=== PATIENT | female | born 1955 | race Caucasian/White ===

== ENCOUNTER → 2018-01-26 | Outpatient (CLI) | payer OTHER | END | disposition home or self-care (01) | LOC: C.PAPS 10:34 | PROVIDERS: ATTEND Obstetrics & Gynecology | DX: Z01.411 Encounter for gynecological examination (general) (routine) with abnormal findings (principal); R87.610 Atypical squamous cells of undetermined significance on cytologic smear of cervix (ASC-US) ==

== ENCOUNTER 2019-03-03 07:34 | Inpatient (IN) ==
--- NOTE | 2019-02-22 10:36 | Anesthesiology Consultation ---
Date of Service February 22, 2019 Assessment & Plan (1) Encounter for pre-operative examination: Chart Review Chart Review: Acceptable Risk for Surgery and Patient NOT seen in Pre Admission Testing History Surgery Operation Date: 03/03/19 12:50 Proposed Procedures p Left Knee Arthroscopy with - Roberto Velez DO s Quadriceps Tendon Repair - Roberto Velez DO Height/Weight Height: 5 ft 4 in Weight: 131.542 kg Allergies Allergy/AdvReac Type Severity Reaction Status Date / Time No Known Allergies Allergy Verified 02/14/19 09:58 Medications Home Medications Medication Instructions Recorded Confirmed Last Taken Prilosec OTC 20 mg PO QAM 10/17/18 02/14/19 Unknown hydrochlorothiazide 25 mg PO QAM 10/17/18 02/14/19 Unknown acetaminophen [Tylenol Arthritis 1,300 mg PO Q12H PRN 02/14/19 02/14/19 Unknown Pain] Past Medical History Medical History Edema reason for hydrochlorothiazide GERD (gastroesophageal reflux disease) Sleep apnea cpap Past Family History Family History Mother Family history of diabetes mellitus Other No family history of adverse response to anesthesia Past Surgical History Surgical History History of bilateral breast reduction surgery History of bilateral tubal ligation History of cardiac cath 10/2018 @ [facility] - abn stress test - no stents/angioplasty History of cholecystectomy History of colonoscopy History of phacoemulsification of cataract of both eyes with intraocular lens implantation History of total hysterectomy with bilateral salpingo-oophorectomy (BSO) Nausea and vomiting after administration of anesthetic agent Social History Smoking Status: Never smoker Do You Dip or Chew Tobacco: No Hx Alcohol Use: Yes Alcohol type: beer and wine alcohol intake frequency: holidays/special occasions only Hx Substance Use: No substance use type: does not use Testing Electrocardiogram Date: 02/20/19 Findings: + NSR @ Chest X-Ray Date: 02/20/19 Findings: + NAD Cardiac Catheterization Date: 10/24/18 Conclusions: Normal pulmonary pressures Normal left ventricular filling pressures Normal cardiac output No evidence of obstructive coronary disease Other Testing Laboratory Tests 10/07/18 02/20/19 02/20/19 09:50 10:33 10:33 WBC 7.42 Hgb 15.3 Hct 42.9 Plt Count 241 PT 10.4 INR 1.0 APTT 25.2 Sodium 141 Potassium 3.9 Chloride 106 Carbon Dioxide 31 BUN 17 Creatinine 1.00 Glucose 117 H
--- NOTE | 2019-03-02 23:12 | History & Physical Report ---
Date of Service March 02, 2019 Assessment & Plan (1) Rupture of quadriceps muscle: Schedule left knee arthroscopy with chondroplasty of the patella and femur, open repair quadriceps tendon tear. All potential risks, benefits, complications, alternatives, and rehab have been discussed with the patient and she wishes to proceed. She will be scheduled for 03.03.19. (2) Chondromalacia of left patella: History of Present Illness Chief Complaint: left knee pain Primary Care Provider: Hannah Sanchez DO This is a patient who sustained an injury to the left knee and was treated as a knee sprain. She participated in PT and used a knee brace but failed to make improvements. 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 She is being set up for surgical tx. Allergies Allergy/AdvReac Type Severity Reaction Status Date / Time No Known Allergies Allergy Verified 02/14/19 09:58 Home Medications Home Medications Medication Instructions Recorded Confirmed Type Prilosec OTC 20 mg PO QAM 10/17/18 02/14/19 History hydrochlorothiazide 25 mg PO QAM 10/17/18 02/14/19 History acetaminophen [Tylenol Arthritis 1,300 mg PO Q12H PRN 02/14/19 02/14/19 History Pain] Past Med/Surg History Medical History Edema reason for hydrochlorothiazide GERD (gastroesophageal reflux disease) Sleep apnea cpap Surgical History History of bilateral breast reduction surgery History of bilateral tubal ligation History of cardiac cath 10/2018 @ [facility] - abn stress test - no stents/angioplasty History of cholecystectomy History of colonoscopy History of phacoemulsification of cataract of both eyes with intraocular lens implantation History of total hysterectomy with bilateral salpingo-oophorectomy (BSO) Nausea and vomiting after administration of anesthetic agent Family History Mother Family history of diabetes mellitus Other No family history of adverse response to anesthesia Social History Preferred Language: Polish Communication Ability: Effective Beliefs That Will Affect Care: None Current Living Situation: Alone Feels Safe at Home: Yes Smoking Status: Never smoker Second Hand Exposure: No Hx Alcohol Use: Yes Alcohol type: beer and wine Hx Substance Use: No Physical Exam Constitutional: well developed and well nourished; no acute distress ENMT: external ear and nose normal, oropharynx normal Neck: trachea midline, no thyromegaly Respiratory: normal respiratory effort, lungs clear to auscultation Cardiovascular: Rate/Rhythm: regular rate and regular rhythm Gastrointestinal (Abdomen): normal bowel sounds, soft, nontender, no hepatosplenomegaly Musculoskeletal: Knee: + effusion (left knee: mild), + limited ROM of knee (left knee secondary to pain) and + joint line tenderness (left knee: tender over the patella and quad tendon); no deformity, no skin erythema, no ecchymosis, no valgus laxity and no varus laxity Skin: no rashes, warm and dry Neurologic: normal touch/pain/proprioception Psychiatric: A+Ox3, euthymic affect Lymphatic: no cervical or axillary lymphadenopathy
[~2019-03-03 07:34] MED LIST: CEFAZOLIN 3000MG 65 ML IV SCH; LR 15ML/HR IV SCH
--- NOTE | 2019-03-03 07:50 | History & Physical Bridge Note ---
Date of Service March 03, 2019 History & Physical Bridge Note I have examined the patient, reviewed the History & Physical and in the interval since the performance of the History & Physical I have noted the following changes of clinical significance: no changes noted
[2019-03-03] MEDS ORDERED: BUPIVACAINE/EPINEPHRINE 0.25% 1:200,000 30 ML VIAL ONE (09:10)
[2019-03-03] MEDS ORDERED: DEXAMETHASONE SOD INJ 4 MG/ML VIAL ONE ×2 (09:10→10:29)
[2019-03-03] MEDS ORDERED: ATROPINE SULFATE 0.1 MG/ML 10ML SYR IV PRN (09:52)
[2019-03-03] MEDS ORDERED: ePHEDrine sulfate 50 MG/ML AMP IV PRN (09:52)
[2019-03-03] MEDS ORDERED: HYDROmorphone INJ 2 MG/ML SYR/VIAL IV PRN (09:52)
[2019-03-03] MEDS ORDERED: ONDANSETRON INJ 2 MG/ML 2 ML VIAL IV PRN ×2 (09:52→12:18)
[2019-03-03] MEDS ORDERED: PROMETHAZINE HCL 6.25 MG in SODIUM CHLORIDE 0.9% 50 ML IV PRN (09:52)
[2019-03-03] MEDS ORDERED: LIDOCAINE HCL 2% 2 ML VIAL/AMP(20MG/ML) INFIL ONE (10:29)
[2019-03-03] MEDS ORDERED: ONDANSETRON INJ 2 MG/ML 2 ML VIAL ONE (10:29)
[2019-03-03] MEDS ORDERED: PROPOFOL IV EMULSION 10 MG/ML 20 ML VIAL IV ONE (10:29)
[2019-03-03] MEDS ORDERED: fentaNYL citrate 100 MCG/2 ML VIAL ONE ×2 (10:30→11:57)
[2019-03-03] MEDS ORDERED: MIDAZOLAM HCL 1 MG/ML 2ML VIAL ONE (10:30)
[2019-03-03] MEDS ORDERED: BACITRACIN INJ 50,000 UNIT VIAL ONE (10:58)
[2019-03-03] MEDS ORDERED: EpINEphrine HCL INJ 1 MG/ML 1ML SYRINGE ONE ×2 (10:58→12:05)
[2019-03-03] MEDS ORDERED: BUPIVACAINE/EPINEPHRINE 0.5% MPF 1:200,000 30 ML VIAL ONE (11:43)
[2019-03-03] MEDS ORDERED: HYDROmorphone INJ 2 MG/ML SYR/VIAL ONE (12:11)
[2019-03-03] MEDS ORDERED: MAGNESIUM HYDROXIDE SUSP 30 ML UDC PO PRN (12:18)
[2019-03-03] MEDS ORDERED: METOCLOPRAMIDE HCL INJ 5 MG/ML 2 ML VIAL IV PRN (12:18)
[2019-03-03] MEDS ORDERED: NALOXONE HCL 0.4 MG/1 ML VIAL/CARP IV PRN (12:18)
[2019-03-03] MEDS ORDERED: BISACODYL 10 MG SUPP PR PRN (12:18)
[2019-03-03] MEDS ORDERED: NO NSAIDS SCH (12:30)
[2019-03-03] MEDS ORDERED: HydrALAZINE HCL 20 MG/ML VIAL ONE (12:32)
[2019-03-03] MEDS ORDERED: METOPROLOL TARTRATE 1 MG/ML VIAL IV ONE (12:32)
--- NOTE | 2019-03-03 14:03 | Fluoroscopy Report ---
FL knee LT 1 or 2V CLINICAL HISTORY: LT PATELLA ORIF COMPARISON STUDY: None FLUOROSCOPY TIME: 30 seconds NUMBER OF FLUOROSCOPIC IMAGES: 2 FINDINGS: AP and lateral projection of the knee was obtained. Study was performed for open reduction internal fixation of the patella. IMPRESSION: Image intensifier utilized for open reduction internal fixation of the patella The above report was generated using voice recognition software. It may contain grammatical, syntax or spelling errors. Electronically signed by: Callum Mc M.D. 03/03/2019 2:02 PM
--- NOTE | 2019-03-03 14:27 | Post Operative Brief Note ---
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, symptomatic medial synovial plica, synovitis, Chondromalacia of left patella grade 3 Procedure Operation Date: 03/03/19 10:00 Actual Procedures p Left Knee Arthroscopy with partial medial meniscectomy, partial lateral meniscectomy, Chondroplasty of Patella, chondroplasty medial femoral condyle, chondroplasty femoral trochlea, Resection of symptomatic medial Synovial Plica, synovectomy (Left) - Roberto Velez DO s Quadriceps Tendon Repair - Roberto Velez DO Surgeon Roberto Velez DO Business Objects Analyst Arnav Cisneros PA-C Estimated Blood Loss 5 Findings Consistent with Post-Op Diagnosis Specimens None Anesthesia Type General Regional Complications none Disposition Accompanied Patient To Recovery: Yes Disposition: Recovery Room
[2019-03-03] MEDS ORDERED: ROCURONIUM BROMIDE 10 MG/ML 5 ML VIAL ONE (14:35)
--- NOTE | 2019-03-03 15:33 | Anesthesiology Progress Note ---
Date of Service March 03, 2019 Anesthesia Post Procedure Vital Signs Vital Signs: Temp Pulse Pulse Pulse Resp BP BP 03/03/19 15:15 76 18 147/70 H 03/03/19 15:10 78 21 159/69 H 03/03/19 15:05 36.4 C L 86 15 166/71 H 03/03/19 14:55 81 15 159/72 H 03/03/19 14:45 76 22 145/75 H 03/03/19 14:35 84 22 157/70 H 03/03/19 14:29 36.7 C 82 16 168/77 H 03/03/19 11:02 68 16 136/77 03/03/19 08:06 36.7 C 73 20 155/82 H Pulse Ox 03/03/19 15:15 93 03/03/19 15:10 92 03/03/19 15:05 94 03/03/19 14:55 92 03/03/19 14:45 93 03/03/19 14:35 94 03/03/19 14:29 96 03/03/19 11:02 94 03/03/19 08:06 93 Pain Intensity Left Knee: Pain Intensity: 2 Transfer of Care Handoff Completed per policy Notes Mental Status: alert / awake / arousable Patient Amnestic to Procedure: Yes Nausea / Vomiting: adequately controlled Pain: adequately controlled Airway Patency, RR, SpO2: stable & adequate BP & HR: stable & adequate Hydration State: stable & adequate Anesthetic Complications: no major complications apparent Notes: block working well in pacu
--- NOTE | 2019-03-03 15:34 | Anesthesiology Progress Note ---
Date of Service March 03, 2019 Anesthesia Post Procedure Vital Signs Vital Signs: Temp Pulse Pulse Pulse Resp BP BP 03/03/19 15:15 76 18 147/70 H 03/03/19 15:10 78 21 159/69 H 03/03/19 15:05 36.4 C L 86 15 166/71 H 03/03/19 14:55 81 15 159/72 H 03/03/19 14:45 76 22 145/75 H 03/03/19 14:35 84 22 157/70 H 03/03/19 14:29 36.7 C 82 16 168/77 H 03/03/19 11:02 68 16 136/77 03/03/19 08:06 36.7 C 73 20 155/82 H Pulse Ox 03/03/19 15:15 93 03/03/19 15:10 92 03/03/19 15:05 94 03/03/19 14:55 92 03/03/19 14:45 93 03/03/19 14:35 94 03/03/19 14:29 96 03/03/19 11:02 94 03/03/19 08:06 93 Pain Intensity Left Knee: Pain Intensity: 2 Transfer of Care Handoff Completed per policy Notes Mental Status: alert / awake / arousable and participated in evaluation Patient Amnestic to Procedure: Yes Nausea / Vomiting: adequately controlled Pain: adequately controlled Airway Patency, RR, SpO2: stable & adequate BP & HR: stable & adequate Hydration State: stable & adequate Anesthetic Complications: no major complications apparent
[2019-03-03] MEDS: ACETAMINOPHEN 500 MG TAB PO SCH ×2 (16:14→18:47)
[2019-03-03] MEDS: SODIUM CHLORIDE 0.9% 1000ML 1,000 ML IV SCH (16:19)
[2019-03-03] MEDS: CEFAZOLIN 2000MG 2,000 MG/15 ML SYR IV SCH (18:47)
[2019-03-03] MEDS: ASPIRIN 81 MG ECTAB PO SCH (20:40)
[2019-03-03] MEDS: DOCUSATE SODIUM 100 MG CAP PO SCH (20:40)
[2019-03-03] MEDS: SENNA 8.6 MG TAB PO SCH (20:40)
--- NOTE | 2019-03-03 22:45 | Operative Report ---
DATE OF OPERATION: 03/03/2019 PREOPERATIVE DIAGNOSES: 1. Left quadriceps tendon tear. 2. Chondromalacia grade 3 of the patella. 3. Chondromalacia grade 3 of the femoral trochlea. 4. Chondromalacia grade 3 of the medial femoral condyle. POSTOPERATIVE DIAGNOSES: 1. Left quadriceps tendon tear. 2. Chondromalacia grade 3 of the patella. 3. Chondromalacia grade 3 of the trochlea. 4. Chondromalacia grade 3 of the medial femoral condyle. 5. Medial meniscus tear of the posterior horn and root. 6. Lateral meniscus tear of the posterior horn and body. 7. Synovitis of the knee. 8. Symptomatic medial synovial plica. PROCEDURE: 1. Left knee arthroscopy with partial medial meniscectomy. 2. Left knee scope with partial lateral meniscectomy. 3. Chondroplasty patella. 4. Chondroplasty of medial femoral condyle. 5. Chondroplasty of the trochlea. 6. Resection medial synovial plica. 7. Synovectomy. 8. Open quadriceps tendon repair. SURGEON: Roberto Velez DO DIRECTOR OF OPERATIONS HOME HEALTH: Arnav Cisneros PA-C. who was present for patient positioning, sterile prep and drape, management of retractors and instruments. He was present through the critical portions of the case including wound closure, application of sterile dressing and transport of the patient to Recovery. ANESTHESIA: General regional. SPECIMENS: None. DRAINS: None. COMPLICATIONS: None. BLOOD LOSS: 5 mL PERTINENT HISTORY: This is a 63-year-old woman who sustained a slight twisting injury to her left knee. She had thought it was merely a sprain and strain. She then had physical therapy and pain then somewhat subsided and then worsened suddenly. She had continued persistent pain in the knee, was seen in clinic and failed all conservative measures. Had an MRI which demonstrated quadriceps tendon tear just at the level of the superior patella with scarring and slight retraction as well as chondromalacia of the undersurface of the patella and the trochlea. The patient was scheduled for surgery as indicated. All potential risks, benefits, complications, alternatives, rehab, potential for incomplete relief of symptoms, DVT, PE, , persistent pain, swelling, scarring, weakness, neurovascular injury, wound complications, hardware failure, need for further surgery discussed with the patient. The patient decided to proceed with the procedure as indicated. PROCEDURE: The patient had a regional anesthetic delivered in the preop holding area, then taken to operative suite, placed supine on the Operating Room table. I reviewed the consent and identification of operative site, the patient was anesthetized, LMA was placed. Tourniquet was placed high on the left thigh over cast padding. Left lower extremity was then sterilely prepped and draped in the usual fashion, elevated and exsanguinated Esmarch bandage, tourniquet inflated to 350 mmHg. Next, 11 blade scalpel was used to make an incision inferior lateral aspect of the knee. A superior medial portal outflow site was made with 11 blade scalpel, incision, blunt trocar and sleeve camera and inflow was inserted in the inferolateral portal site. Outflow was inserted in the superior medial portal site. Sequential diagnostic arthroscopy demonstrated synovitis and chondromalacia grade 3 of the patella and the femoral trochlea. No significant loose bodies. There was noted to be a symptomatic medial synovial plica with hypertrophic medial border. The medial gutter was inspected, no loose bodies; however synovitis was noted. Next, the medial compartment was inspected and noted to be synovitis. An 18 gauge spinal needle was inserted for portal placement followed by 11 blade scalpel incision followed by placement of a blunt tipped probe. There was noted to be tear of the root and posterior horn of the medial meniscus. A 3.5 mm sucker shaver was introduced and a partial medial meniscectomy was performed. Also was noted to be grade 3 chondromalacia of the medial femoral condyle. Chondroplasty was performed with 3.5 mm sucker shaver in the medial femoral condyle. Synovectomy was also performed of the medial compartment and the medial gutter. Next, the ACL and PCL were inspected and probed was inserted and noted to be stable. Next, the lateral joint space inspected and noted to have a tear of the posterior horn and body of the lateral meniscus. Partial medial meniscectomy was performed with 3.5 mm sucker shaver. Next, there was also synovitis noted in this compartment. Synovectomy was performed with the sucker shaver. Lateral gutters inspected and there was noted to be no loose bodies and a synovectomy was performed with 3.5 mm sucker shaver. Subsequently, attention was then directed toward the suprapatellar pouch and a synovectomy was performed, the suprapatellar pouch as well as a chondroplasty performed of the patella and the trochlea. Next, the symptomatic medial synovial plica was also then resected with the sucker shaver. After all particulate debris was then flushed from the joint, the instruments removed from the joint. Portals were closed using interrupted 4-0 nylon sutures. Attention then directed toward the midline of the knee and then a 15 blade scalpel, incision was made in the midline anterior left knee proximal to the patella extending to the distal pole of the patella. The incision was deepened through subcutaneous tissue. Meticulous hemostasis was achieved with electrocautery. Full thickness skin flaps were developed. The obvious tear of the quadriceps tendon and retinaculum was identified. This was sharply debrided. There was noted to be hypertrophic scar throughout. After this debrided the superior pole of the patella was identified and then a rongeur was then used to decorticate the superior pole of the patella for improved tissue ingrowth. Next, the quadriceps tendon was then repaired using #5 FiberWire suture using a [place] locking loop technique with 2 separate sutures. Next, a tendon from the Arthrex ACL set was then used to drill a central canal hole to the center-center portion of the patella from superior to inferior in a live fluoroscopic assistance. This was then followed by placement of the central to the fibers of the FiberWire repair down the first tunnel. Under live fluoroscopic assistance 2 further tunnels were made both medial and then lateral to the central channel thus shuttling the remaining 2 suture limbs both medially and laterally. The appropriate limbs were mated and the leg was held in approximately 25-30 degrees of flexion and the sutures were then tied and cut reapproximating the quadriceps tendon into anatomic position. This confirmed on live fluoroscopic assistance. Next, the superior retinaculum and torn medial and lateral retinaculum were then closed using interrupted #5 FiberWire and #1 Vicryl. After watertight seal was re-achieved the joint capsule was then injected with 0.5% Marcaine and epinephrine, approximately 30 mL. Next, the wound was copiously irrigated with sterile normal saline until clear and then the dermis was closed using interrupted buried 2-0 Vicryl suture. The skin was closed with skin carline. A sterile compressive dressing and toes to groin Blake wrap was applied. The tourniquet was released. The patient was awakened and taken to recovery in stable condition. I attest to the content of the Intraoperative Record and any orders documented therein. Any exception s are noted below.
[2019-03-04] MEDS: SODIUM CHLORIDE 0.9% 1000ML 1,000 ML IV SCH (02:56)
[2019-03-04] MEDS: CEFAZOLIN 2000MG 2,000 MG/15 ML SYR IV SCH (03:50)
[2019-03-04] MEDS: OXYCODONE HCL IR 5 MG TAB (IMMEDIATE RELEASE) PO PRN ×4 (04:58→23:58)
[2019-03-04] MEDS: ACETAMINOPHEN 500 MG TAB PO SCH ×3 (04:59→21:07)
[2019-03-04 06:55] LABS: Hematocrit (blood only) 41.7 % (37-47); Hemoglobin 14.5 g/dL (12.0-16.0); Mean Corpuscular Hgb Conc 34.8 g/dL (32-36); Mean Corpuscular Volume 90.7 fL (80-100); Platelet Count 255 K/uL (130-400); RDW Coefficient of Variation 13.2 % (11.5-14.5); RDW Standard Deviation 43.5 fL (36.4-46.3); White Blood Count 15.07 K/uL (4.8-10.8)
[2019-03-04 07:15] LABS: BUN Creatinine Ratio 15.7 (10-20); Calcium 8.8 mg/dl (8.5-10.1); Creatinine Clr Calc Pharmacy 80.3 ml/min; Est GFR (African American) 70.7
[2019-03-04] MEDS: HYDROmorphone INJ 0.5 MG/0.5 ML SYR IV PRN ×2 (07:47→13:21)
[2019-03-04] MEDS: DOCUSATE SODIUM 100 MG CAP PO SCH ×2 (08:49→20:30)
[2019-03-04] MEDS: PANTOprazole 40 MG TAB PO SCH (08:49)
[2019-03-04] MEDS: hydroCHLOROthiazide 25 MG TAB PO SCH (08:50)
[2019-03-04] MEDS: ASPIRIN 81 MG ECTAB PO SCH ×2 (08:50→20:30)
[2019-03-04] MEDS: MULTIVITAMIN TAB PO SCH (08:50)
--- NOTE | 2019-03-04 08:56 | Orthopedic Progress Note ---
Date of Service March 04, 2019 Assessment & Plan (1) Rupture of quadriceps muscle: NWB with Knee immobilizer marketing services manager checking with rehab for a few days but will most likely not hear from insurance until wednesday. PT/OT SCD's DC planning: Home with HH vs rehab Subjective POD #1 left knee scope and open quad repair. She notes some pain today and has concerns about going home by herself because she has no one to help and has 7 stairs to get inside apt. No CP, SOB. Nausea/vomit. dizziness Physical Exam Physical Exam: Toes mobile, NVI. Calves soft, non tender. Dressing in place and knee immobilizer Results & Data Vital Signs (Past 12 Hours) Vital Signs Temp Pulse Resp BP Pulse Ox 03/04/19 07:51 36.6 C 98 H 20 155/75 H 92 03/04/19 04:35 36.7 C 92 H 18 154/69 H 94 03/03/19 23:10 36.7 C 95 H 18 141/74 H 91
--- NOTE | 2019-03-04 17:04 | Anesthesiology Progress Note ---
Date of Service March 04, 2019 Anesthesia Post Procedure Vital Signs Vital Signs: Temp Pulse Pulse Resp BP Pulse Ox 03/04/19 15:19 158/75 H 03/04/19 14:58 36.6 C 83 16 165/67 H 94 03/04/19 12:00 36.5 C 74 20 161/85 H 90 03/04/19 07:51 36.6 C 98 H 20 155/75 H 92 03/04/19 04:35 36.7 C 92 H 18 154/69 H 94 03/03/19 23:10 36.7 C 95 H 18 141/74 H 91 03/03/19 19:19 36.5 C 75 20 150/70 H 94 03/03/19 17:34 36.6 C 87 20 145/75 H 95 Pain Intensity Left Knee: Pain Intensity: 7 Transfer of Care Handoff Completed per policy Notes Mental Status: alert / awake / arousable and participated in evaluation Patient Amnestic to Procedure: Yes Nausea / Vomiting: adequately controlled Pain: adequately controlled Airway Patency, RR, SpO2: stable & adequate BP & HR: stable & adequate Hydration State: stable & adequate Anesthetic Complications: no major complications apparent and Pt Satisfied with anesthetic care
[2019-03-04] MEDS: SENNA 8.6 MG TAB PO SCH (20:30)
[2019-03-05] MEDS: ACETAMINOPHEN 500 MG TAB PO SCH ×3 (05:43→21:52)
[2019-03-05] MEDS: OXYCODONE HCL IR 5 MG TAB (IMMEDIATE RELEASE) PO PRN ×5 (05:43→23:57)
[2019-03-05] MEDS: hydroCHLOROthiazide 25 MG TAB PO SCH (09:02)
[2019-03-05] MEDS: PANTOprazole 40 MG TAB PO SCH (09:02)
[2019-03-05] MEDS: MULTIVITAMIN TAB PO SCH (09:02)
[2019-03-05] MEDS: DOCUSATE SODIUM 100 MG CAP PO SCH ×2 (09:02→20:49)
[2019-03-05] MEDS: ASPIRIN 81 MG ECTAB PO SCH ×2 (09:02→20:49)
--- NOTE | 2019-03-05 10:07 | Orthopedic Progress Note ---
Date of Service March 05, 2019 Assessment & Plan (1) Rupture of quadriceps muscle: NWB with Knee immobilizer career services officer checking with rehab for a few days but will most likely not hear from insurance until wednesday. PT/OT SCD's DC planning: Home with HH vs rehab, awaiting approval rehab Subjective POD #2 left knee scope and open quad repair. She notes some pain today. She was able to use the walker and that seems better. concerns about going home by herself because she has no one to help and has 7 stairs to get inside apt. No CP, SOB. Nausea/vomit. dizziness Physical Exam Physical Exam: Incision clean dry intact. NVI. toes mobile Results & Data Vital Signs (Past 12 Hours) Vital Signs Temp Pulse Resp BP Pulse Ox 03/05/19 08:36 36.7 C 82 18 145/80 H 92 03/04/19 23:10 36.6 C 86 18 139/67 92
--- NOTE | 2019-03-05 17:44 | Ultrasound Report ---
US venous doppler LE LT CLINICAL HISTORY: Left leg pain and swelling COMPARISON STUDY: No previous studies for comparison. FINDINGS: Real-time and color flow Doppler imaging were performed. Flow was seen within the femoral, popliteal and calf veins with no intraluminal thrombus demonstrated. The saphenous vein is patent. It should be noted that the patient was unable to tolerate compression at the level of the distal sup erficial femoral vein and popliteal vein due to recent surgery. These vessels appear patent on color flow observation. In addition a portion of the right anterior tibial vein could not be visualized du e to an overlying bandage. IMPRESSION: No evidence of left lower extremity DVT. Electronically signed by: Miguel Ángel Maldonado M.D. 03/05/2019 5:43 PM
[2019-03-05] MEDS: SENNA 8.6 MG TAB PO SCH (20:49)
[2019-03-05] MEDS: MICONAZOLE NITRATE POWDER 43 GM EXT SCH (20:50)
[2019-03-06] MEDS: ACETAMINOPHEN 500 MG TAB PO SCH ×3 (05:50→22:02)
[2019-03-06] MEDS: OXYCODONE HCL IR 5 MG TAB (IMMEDIATE RELEASE) PO PRN ×4 (05:52→19:45)
[2019-03-06] MEDS: MICONAZOLE NITRATE POWDER 43 GM EXT SCH ×2 (06:53→21:12)
--- NOTE | 2019-03-06 07:45 | Anesthesiology Progress Note ---
Date of Service March 06, 2019 Anesthesia Post Procedure Vital Signs Vital Signs: Temp Pulse Resp BP Pulse Ox 03/06/19 06:49 36.7 C 79 18 149/80 H 91 03/06/19 00:00 36.8 C 87 18 158/66 H 91 03/05/19 15:28 37.1 C 86 16 148/79 H 90 03/05/19 08:36 36.7 C 82 18 145/80 H 92 Pain Intensity Left Knee: Pain Intensity: 5 Notes Mental Status: alert / awake / arousable and participated in evaluation Patient Amnestic to Procedure: Yes Nausea / Vomiting: adequately controlled Pain: adequately controlled Airway Patency, RR, SpO2: stable & adequate BP & HR: stable & adequate Hydration State: stable & adequate Anesthetic Complications: no major complications apparent and Pt Satisfied with anesthetic care
[2019-03-06] MEDS: MULTIVITAMIN TAB PO SCH (08:26)
[2019-03-06] MEDS: PANTOprazole 40 MG TAB PO SCH (08:26)
[2019-03-06] MEDS: DOCUSATE SODIUM 100 MG CAP PO SCH ×2 (08:26→21:12)
[2019-03-06] MEDS: hydroCHLOROthiazide 25 MG TAB PO SCH (08:26)
[2019-03-06] MEDS: ASPIRIN 81 MG ECTAB PO SCH ×2 (08:26→21:12)
--- NOTE | 2019-03-06 15:27 | Orthopedic Progress Note ---
Date of Service March 06, 2019 Assessment & Plan (1) Rupture of quadriceps muscle: s/p repair quad and scope left knee with dr lis wood, immobilizer, awaiting rehab. Subjective Pt doing well, voinces no complaints Physical Exam Physical Exam: LLE nvi, immobiliaer in place Results & Data Vital Signs (Past 12 Hours) Vital Signs Temp Pulse Resp BP Pulse Ox 03/06/19 06:49 36.7 C 79 18 149/80 H 91
[2019-03-06] MEDS: SENNA 8.6 MG TAB PO SCH (21:12)
[2019-03-07] MEDS: OXYCODONE HCL IR 5 MG TAB (IMMEDIATE RELEASE) PO PRN ×3 (03:17→12:28)
[2019-03-07] MEDS: ACETAMINOPHEN 500 MG TAB PO SCH ×2 (05:53→12:28)
[2019-03-07 07:13] VITALS: BP 146/78; TEMP 98.2; O2SAT 94
--- NOTE | 2019-03-07 07:36 | Orthopedic Progress Note ---
Date of Service March 07, 2019 Assessment & Plan (1) Rupture of quadriceps muscle: POD #4 s/p 1. Left knee arthroscopy with partial medial meniscectomy. 2. Left knee scope with partial lateral meniscectomy. 3. Chondroplasty patella. 4. Chondroplasty of medial femoral condyle. 5. Chondroplasty of the trochlea. 6. Resection medial synovial plica. 7. Synovectomy. 8. Open quadriceps tendon repair. nwb LLE at all times, immobilizer D/C planning--awaiting approval and acceptance to [facility] rehab--hopeful for D/C today. DVT prophylaxis--TEDs and ASA Subjective No complaints. States the pain has been controlled. Working with staying NWB LLE. No chest pain, SOB. Physical Exam Constitutional: well developed and well nourished; no acute distress ENMT: external ear and nose normal, oropharynx normal Neck: trachea midline, no thyromegaly Respiratory: normal respiratory effort, lungs clear to auscultation Cardiovascular: Rate/Rhythm: regular rate and regular rhythm Gastrointestinal (Abdomen): normal bowel sounds, soft, nontender, no hepatosplenomegaly Musculoskeletal: Knee: + surgical incision (Left knee: [place] in place. ) and + joint line tenderness (left knee: tender over the patella and quad tendon); no deformity, no skin erythema, no ecchymosis, no valgus laxity and no varus laxity Skin: no rashes, warm and dry Neurologic: normal touch/pain/proprioception Psychiatric: A+Ox3, euthymic affect Lymphatic: no cervical or axillary lymphadenopathy Results & Data Vital Signs (Past 12 Hours) Vital Signs Temp Pulse Resp BP Pulse Ox 03/07/19 07:11 36.8 C 74 18 146/78 H 94 03/06/19 23:44 36.7 C 80 20 146/73 H 92
[2019-03-07] MEDS: PANTOprazole 40 MG TAB PO SCH (08:40)
[2019-03-07] MEDS: DOCUSATE SODIUM 100 MG CAP PO SCH (08:40)
[2019-03-07] MEDS: MULTIVITAMIN TAB PO SCH (08:40)
[2019-03-07] MEDS: ASPIRIN 81 MG ECTAB PO SCH (08:41)
[2019-03-07] MEDS: hydroCHLOROthiazide 25 MG TAB PO SCH (08:41)
[2019-03-07] MEDS: MICONAZOLE NITRATE POWDER 43 GM EXT SCH (08:42)
[2019-03-07 11:49] VITALS: PULSE 75
--- NOTE | 2019-03-10 09:54 | Discharge Summary ---
Date of Service March 10, 2019 Admission HPI Per Admitting Provider This is a patient who sustained an injury to the left knee and was treated as a knee sprain. She participated in PT and used a knee brace but failed to make improvements. 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 She is being set up for surgical tx. Principal Diagnosis left quadriceps tendon tear Discharge Exam Constitutional well developed and well nourished; no acute distress ENMT external ear and nose normal, oropharynx normal Neck trachea midline, no thyromegaly Respiratory normal respiratory effort, lungs clear to auscultation Cardiovascular Rate/Rhythm: regular rate and regular rhythm Gastrointestinal (Abdomen) normal bowel sounds, soft, nontender, no hepatosplenomegaly Musculoskeletal Knee: + surgical incision (Left knee: Silverlon in place. ) and + joint line te nderness (left knee: tender over the patella and quad tendon); no deformity, no skin erythema, no ecchymosis, no valgus laxity and no varus laxity Skin no rashes, warm and dry Neurologic normal touch/pain/proprioception Psychiatric A+Ox3, euthymic affect Lymphatic no cervical or axillary lymphadenopathy Discharge Data Allergies Allergy/AdvReac Type Severity Reaction Status Date / Time No Known Allergies Allergy Verified 03/03/19 08:00 Consultations 03/03/19 12:19 Consult Case Management - Discharge Planning Routine Procedures Performed Operation Date: 03/03/19 10:00 Actual Procedures p Left Knee Arthroscopy with partial medial and lateral menisectomy, Chondroplasty of Patella and Medial femoral trochlea, Resection of Medial Synovial Plica (Left) - Roberto Echols DO s Quadriceps Tendon Repair - Roberto Echols DO Ordered Studies 03/03/19 FL fluoroscopy <1hr Routine FL knee LT 1 or 2V Routine 03/03/19 05:00 US - OR guided needle placemen Routine 03/05/19 16:44 US venous doppler LE LT Stat Hospital Course (1) Rupture of quadriceps muscle: The patient underwent the noted procedure on 03.03.19. She progressed well with pain control, PT, and remaining NWB on the LLE. Once insurance approval and acceptance was received for [facility] re[facility] facility, she was discharged. POD #4 s/p 1. Left knee arthroscopy with partial medial meniscectomy. 2. Left knee scope with partial lateral meniscectomy. 3. Chondroplasty patella. 4. Chondroplasty of medial femoral condyle. 5. Chondroplasty of the trochlea. 6. Resection medial synovial plica. 7. Synovectomy. 8. Open quadriceps tendon repair. nwb LLE at all times, immobilizer D/C planning--awaiting approval and acceptance to [facility] re[facility]--hopeful for D/C today. DVT prophylaxis--TEDs and ASA Total Time Total Time Spent Total Time Spent (In Minutes): 1 hour Total Time Includes: Examination of the Patient, Discharge Planning and Medication Reconciliation Discharge Plan Discharge Items Patient Disposition: Transfer Inpatient Rehab Fac Reason For Visit: LEFT KNEE EFFUSION, QUADRICEPS TENDON TEAR Discharge Diagnosis: left knee quadriceps tendon tear Discharge Goals: Decrease discomfort and Improve function Activity: Per 'Additional Instructions' section Weightbearing: Left non-weightbearing Non-emergency contact: Surgeon Call non-emergency contact if: your pain is not controlled, your pain is worsening and your temperature is above 101.5 Follow-up/Referrals: Hannah Sanchez DO [Primary Care Provider] - Diet: Regular Addtl Provider Instructions: ACTIVITY RECOMMENDATIONS: Limitations: No weight bearing to affected limb at all times. Keep knee immobilizer on at all times. SPECIAL CARE INSTRUCTIONS: * Take Aspirin 81 mg every 12 hours for the next 30 days for blood clot prophylaxis. * Silverlon: You have a Silverlon dressing on the right knee incision. It will remain in place for 7 days from the day of your surgery. After 7 days, you may remove the dressing, just as you would remove a bandaid. You may shower with the Silverlon dressing in place. However, if you notice any water within the dressing, the dressing should be removed. You may cover the incision with a dry dressing once the silverlon is removed if there is any drainage. * Some drainage onto the dressing is normal and is no cause for alarm. * Some swelling is natural especially after walking. * When resting, keep your foot elevated above the level of your heart. * Call [facility] [place] if you notice: -Increased drainage -Fever over 101 degrees F -Severe constant pain BANDAGE: * Leave bandage/cast in place unless otherwise directed. * Keep bandage/cast dry at all times. FOLLOW UP VISIT WITH DR. ECHOLS If appointment is not already scheduled: Please call [facility] [place] after you get home today to schedule a follow-up appointment for [address] Echols at . Prescriptions: New aspirin [Ecotrin Low Strength] 81 mg Tablet,Delayed Release (Dr/Ec) 81 mg PO BID Qty: 60 RF: 0 oxycodone-acetaminophen [Percocet] 5-325 mg tablet 1 tab PO Q4H PRN (Reason: pain) Qty: 30 RF: 0 Continued hydrochlorothiazide 25 mg Tablet 25 mg PO QAM RF: 0 Prilosec OTC 20 mg Tablet,Delayed Release (Dr/Ec) 20 mg PO QAM RF: 0 Discontinued acetaminophen [Tylenol Arthritis Pain] 650 mg Tablet Extended Release 1,300 mg PO Q12H PRN (Reason: Pain) RF: 0 Stand-Alone Forms: [employer], [facility] [employer]/Other Patient Handouts: Surgery Prevent DVT After, Replacement Knee Total, Replacement Knee Home After, Replacement Knee First Month Discharge Orders: Discharge Order (Routine); Ordered 03/07/19 Ordered By: Arnav Cisneros Skilled Items Patient informed of condition?: Yes DNR: No Discharge Level of Care: Acute rehab Communicable Disease: No Discharge Prognosis: Stable Admission Data Admit Date/Time: 03/03/19 12:19 Attending Provider: Roberto Echols Admit Provider: Roberto Echols Primary Care Provider: Hannah Sanchez Service: Surgical Services Other Interventions: Discharge Summary Assessment (RN) Last Done: 03/07/19 11:44 DC Date/Time DO NOT enter until pt leaves facility: 03/07/19 13:48
== END 2019-03-07 13:48 | DRG 909 ==
LOC: ASU 07:34 → 3E 12:19